=== PATIENT | female | born 1975 | race Caucasian/White ===

== ENCOUNTER → 2017-02-10 | Outpatient (CLI) | payer MEDICARE, MEDICAID ==
[~2017-02-10] MED LIST: AMOXICILLIN 50500 MG PO; AMPHETAMINE SAL20 MG PO; BISAC-EVAC10 MG PR; CALCIUM500 MG PO; CEPHALEXIN500 M2 PO; CIPRO 250MG TA250 MG PO; CLARITIN-D 5 MG1 T12 PO; CLONAZEPAM0.5 M2 PO; CLONAZEPAM2 MG PO; CORTISPORIN OTI10 ML OT; CYCLOBENZAPRINE5 MG PO; Cephalexin500 MG PO; ESCITALOPRAM20 MG PO; GABAPENTIN300 M1 PO; HYDROCODONE-APA1 TA2 PO; HYDROMORPHONE2 MG PO; IBUPROFEN 600M600 MG PO; LASIX40 MG PO; LINZESS290 MCG PO; LORATADINE 10MG10 M1 PO; LORTAB 5/500 501 TAB PO; LOSARTAN POTASS25 MG PO; LOSARTAN POTASS50 MG PO; MULTIVITAMIN1 TAB PO; NAPROSYN 500MG500 MG PO; NAPROXEN SODIU500 MG PO; NEXIUM40 MG PO; NORCO1 TAB PO; SAVELLA100 MG PO; SINGULAIR 10 MG10 MG PO; ZOLOFT100 MG PO
--- NOTE | 2017-02-10 14:18 | RADIOLOGY REPORT PS360 ---
History and Indications: Coronary artery disease, hypertension, hyperlipidemia, tobacco use, family history, chest pain and shortness of breath. Procedure: Patient received 0.4 mg of Lexiscan, resting heart rate was 65 bpm resting blood pressure 106/54, with Lexiscan maximum heart rate achieved was 95 bpm which is less than 85% of the maximum predicted heart rate and a blood pressure was 114/53, with Lexiscan patient complained of abdominal cramps. Electrocardiogram: Resting electrocardiogram showed sinus rhythm nonspecific ST-T changes, with Lexiscan there is less than 1.[address] segment depression noted from the baseline EKG. The EKG portion of the Lexiscan is nondiagnostic. Cardiac stress and resting SPECT images: Cardiac stress and resting SPECT images were obtained using technetium 99 Myoview 9.7 mCi at rest and 31.0 mCi at stress. Gated SPECT further analysis of segmental wall motion and calculation of the ejection fraction also done. Cardiac stress and resting SPECT images show a mild fixed defect anteroseptally with normal contractility gated soft tissue attenuation from the breast, no reversible ischemia seen. Computer derived ejection fraction 53% with no obvious regional wall motion abnormality, right ventricle is normal size and contractility. Conclusion: 1. The EKG portion of the Lexiscan is nondiagnostic. 2. No obvious scintigraphic evidence of reversible ischemia seen, fixed defect seen anteroapically with normal contractility in the gated SPECT is likely secondary to soft tissue attenuation. Computer derived ejection fraction is 53% with no obvious regional wall motion abnormality. Right ventricle is normal size and contractility.
--- NOTE | 2017-02-10 16:14 | RADIOLOGY REPORT PS360 ---
PROCEDURE: 2-D M-mode and color Doppler study INDICATIONS FOR THE TEST: Chest pain+ COPD Heart Murmur Tobacco Smoking+ Palpitations+ Fatigue+ Syncope Edema+ Hypertension+Diabetes Mellitus Rheumatic Fever SOB RAY+Obesity Hyperlipidemia Family History HD+ Additional History Angina, dizziness, migraines PATIENT INFORMATION HEIGHT: 62 WEIGHT: 140 GENDER: Female B/P: 106/54 2-D/M-MODE INTERPRETATION: 2-D MEASUREMENTS OBSERVED VALUES IN CMS Right Ventricular Dimension (RVDd) 1.5 Interventricular Septum (Thickness)(IVsd) 0.8 Left Ventricular Internal Dimensions(LVIDd) 3.6 Left Ventricular Posterior Wall (Thickness)(LVPWd) 0.9 Aortic Root 2.1 Aortic Cusp Separation 2.0 Left Atrial Dimensions (LAD) 3.1 2D 1. Left atrium is normal size, left ventricle is normal size, there is no concentric left ventricular hypertrophy, visually estimated ejection fraction of 55% with no obvious regional wall motion abnormality. 2. The right atrium and right ventricle are normal size and contractility. 3. The intra-atrial septum is mobile consistent with atrial septal aneurysm. 4. The aortic valve is structurally normal. 5. The mitral valve leaflets are minimally thickened, there appears to be mild prolapse of the posterior mitral leaflet. 6. The tricuspid valve is structurally normal. 7. The pulmonic valve is not well visualized. DOPPLER INTERROGATION: Doppler interrogation of the aortic mitral and tricuspid valvular presence of mild mitral and tricuspid regurgitation, tricuspid regurgitant jet velocity insufficient for calculation of the right ventricular systolic pressure. Agitated saline contrast study identifies right to left shunt through atrial septal aneurysm. CONCLUSION: 1. Normal left ventricular size, preserved left ventricular systolic function, visually estimated ejection fraction 55% with no obvious regional wall motion abnormality. 2. 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 3. Mild mitral valve prolapse associated with mild mitral regurgitation. 4. Mild tricuspid regurgitation. 5. No significant pericardial effusion noted.
== END ==
LOC: RT 02-07 11:00 → RAD 06:00 → RT 10:15
DX: I20.9 Angina pectoris, unspecified (principal); I25.10 Atherosclerotic heart disease of native coronary artery without angina pectoris; I11.9 Hypertensive heart disease without heart failure; E78.5 Hyperlipidemia, unspecified
CPT/HCPCS: A9502; J2785

== ENCOUNTER → 2017-09-01 | Outpatient (CLI) | payer MEDICARE, MEDICAID ==
[2017-09-01 16:04] LABS: HEMOGLOBIN 13.3 g/dL (12.2-16.2); LYMPH # 2.4 K/mm3 (0.7-4.5); LYMPH % 25.6 % (10-50.0)
[2017-09-01 17:07] LABS: BUN 6 mg/dL (7-18)
[2017-09-01 17:09] LABS: GFR (ESTIMATED) 93 ML/MIN (59-)
== END ==
LOC: LAB 15:50
PROVIDERS: Internal Medicine
DX: M13.0 Polyarthritis, unspecified (principal); R53.83 Other fatigue; I10 Essential (primary) hypertension